=== PATIENT | male | born 1985 | race Caucasian/White ===

== ENCOUNTER 2016-06-23 04:10 | Inpatient (IN) | payer SELFPAY ==
[~2016-06-23] VITALS: Ht 180.3 cm; Wt 57.2 kg
[~2016-06-23 04:10] MED LIST: DILANTIN100 MG PO; FLEXERIL10 MG PO; KEPPRA500 MG PO; LOPRESSOR100 M1 PO; Lopressor PO; MOTRIN800 MG PO; PROPYLTHIOURACI50 M1 PO; ULTRAM50 MG PO; oxyCODONE PO
[2016-06-23 05:47] LABS: CHLORIDE 97 mEq/L (99-109); POTASSIUM 3.8 mEq/L (3.7-5.4); SODIUM 141 mEq/L (136-147)
[2016-06-23 05:49] LABS: GLUCOSE 124 mg/dL (70-99)
[2016-06-23 05:50] LABS: ANION GAP 8 MEQ/L (2-14)
[2016-06-23 05:52] LABS: SERUM ETHYL ALCOHOL < 10 mg/dL
[2016-06-23 05:53] LABS: GFR ESTIMATE (CALCULATED) > 59 mL/min/
[2016-06-23 05:54] LABS: HEMATOCRIT 45.7 % (38.0-50.0); MCH 28.5 PG (29.0-34.0); MCHC 30.9 G/DL (30.0-36.0); MCV 92.5 FL (86-99); MEAN PLAT.VOLUME 9.9 uM^3 (9.0-12.4); PLATELET COUNT 220 K/uL (156-360); RBC DIS.WIDTH-CV 13.4 % (11.8-14.6); RBC DIS.WIDTH-SD 45.6 % (39-53); RED BLOOD COUNT 4.94 M/uL (4.00-5.50); UREA NITROGEN (BUN) 12 mg/dL (9-23); WHITE BLOOD COUNT 25.9 K/uL (4.1-10.2)
[2016-06-23 05:56] LABS: SALICYLATE < 5.0 MG/DL (15-30)
[2016-06-23 06:25] LABS: BASE EXCESS 4.2 mEq/L (-3 to +3); BICARBONATE 35.6 mEq/L (22-26); METHEMOGLOBIN 1.4 % (0-1.5); PCO2 91 mm Hg (35-45); PO2 109 mm Hg (80-100)
[2016-06-23 06:26] LABS: COMMENTS - BLOOD GASES C+A+; DEVICE NC; O2 FLOW 3 L/MIN; SITE RR; TOTAL RESP RATE 14 resp/min
[2016-06-23 07:14] LABS: BASE EXCESS 8.3 mEq/L (-3 to +3); BICARBONATE 37.1 mEq/L (22-26); METHEMOGLOBIN 1.4 % (0-1.5); PO2 126 mm Hg (80-100)
[2016-06-23 07:15] LABS: COMMENTS - BLOOD GASES A+C+; DEVICE 980; FI02 30 %; MODE N/V SPONT; PCO2 72 mm Hg (35-45); PEEP 5 CM/H20; PRES. SUPPORT 10 CM/H2O; SITE RR; TOTAL RESP RATE 14 resp/min; pH 7.32 (7.35-7.45)
[2016-06-23 07:18] LABS: EOSINOPHIL (%) 0.1 % (0-5); HEMATOCRIT 42.6 % (38.0-50.0); IMMATURE GRANULOCYTE (%) 0.5 % (0.0-0.7); IMMATURE GRANULOCYTE COUNT 0.1 K/uL; INSTRUMENT ABS NEUTROPHIL CT 14.1 K/uL; LYMPHOCYTE COUNT 0.5 K/uL (1.0-2.8); MCH 28.1 PG (29.0-34.0); MCV 90.6 FL (86-99); MEAN PLAT.VOLUME 9.9 uM^3 (9.0-12.4); MONOCYTE (%) 11.5 % (3-12); MONOCYTE COUNT 1.9 K/uL (0-0.8); NEUTROPHIL (%) 85.1 % (45-76); NEUTROPHIL COUNT 14.1 K/uL (1.8-6.4); PLATELET COUNT 210 K/uL (156-360); RBC DIS.WIDTH-CV 13.5 % (11.8-14.6); RBC DIS.WIDTH-SD 45.1 % (39-53); WHITE BLOOD COUNT 16.6 K/uL (4.1-10.2)
[2016-06-23 07:23] LABS: AMYLASE 48 IU/L (1-118); CHLORIDE 99 mEq/L (99-109); POTASSIUM 4.3 mEq/L (3.7-5.4); SODIUM 140 mEq/L (136-147)
[2016-06-23 07:24] LABS: INTER. NORMALIZED RATIO 1.3; PROTHROMBIN TIME 12.9 (9.2-11.2); PTT 26.4 (25-32)
[2016-06-23 07:26] LABS: ANION GAP 7 MEQ/L (2-14)
[2016-06-23 07:27] LABS: GLUCOSE 69 mg/dL (70-99)
[2016-06-23 07:28] LABS: SERUM ETHYL ALCOHOL < 10 mg/dL
[2016-06-23 07:29] LABS: GFR ESTIMATE (CALCULATED) > 59 mL/min/
[2016-06-23 07:30] LABS: UREA NITROGEN (BUN) 12 mg/dL (9-23)
[2016-06-23 07:32] LABS: LIPASE 11 U/L (1.0-51.0)
[2016-06-23 07:37] LABS: TROP-I INTERPRETATION NEGATIVE; TROPONIN-I 0.03 ng/mL (0.0-0.30)
[2016-06-23 11:06] LABS: ADD MIUA? NO; BILIRUBIN NEGATIVE; BLOOD NEGATIVE; COLOR YELLOW ((YELLOW)); GLUCOSE (STRIP) NEGATIVE; KETONES NEGATIVE; LEUKOCYTES NEGATIVE; NITRITE NEGATIVE; PROTEIN (STRIP) 30; SPECIFIC GRAVITY 1.016 (1.000-1.030); UCUL ADDED? NO; UROBILINOGEN 0.2 MG/DL (0.2-1.0)
[2016-06-23 12:16] LABS: AMPHETAMINE NEGATIVE (500 ng/mL); BARBITURATES NEGATIVE (200 ng/mL); BENZODIAZEPINES NEGATIVE (150 ng/mL); COCAINE NEGATIVE (150 ng/mL); INTERNAL CONTROLS VALID? YES; METHADONE PRESUMPTIVE POSITIVE (200 ng/mL); METHAMPHETAMINE NEGATIVE (500 ng/mL); OPIATES (MORPHINE) NEGATIVE (100 ng/mL); OXYCODONE PRESUMPTIVE POSITIVE (100 ng/mL); PHENCYCLIDINE NEGATIVE (25 ng/mL); PROPOXYPHENE NEGATIVE (300 ng/mL); THC CANNABINOIDS NEGATIVE (50 ng/mL); TRICYCLIC ANTIDEPRESSANTS NEGATIVE (300 ng/mL)
[2016-06-23 13:34] LABS: TROP-I INTERPRETATION NEGATIVE; TROPONIN-I 0.03 ng/mL (0.0-0.30)
[2016-06-23 14:20] VITALS: BP 120/66
[2016-06-23 19:11] LABS: TROP-I INTERPRETATION NEGATIVE; TROPONIN-I 0.02 ng/mL (0.0-0.30)
[2016-06-23 20:28] VITALS: BP 101/55
[2016-06-23 23:48] VITALS: BP 107/65
[2016-06-24 03:42] VITALS: BP 100/54
[2016-06-24 07:19] LABS: HEMATOCRIT 39.4 % (38.0-50.0); MCH 27.9 PG (29.0-34.0); MCHC 30.2 G/DL (30.0-36.0); MCV 92.3 FL (86-99); MEAN PLAT.VOLUME 10.3 uM^3 (9.0-12.4); PLATELET COUNT 196 K/uL (156-360); RBC DIS.WIDTH-CV 13.8 % (11.8-14.6); RBC DIS.WIDTH-SD 46.5 % (39-53); RED BLOOD COUNT 4.27 M/uL (4.00-5.50)
[2016-06-24 07:32] VITALS: BP 115/59
[2016-06-24 11:34] VITALS: BP 116/66
[2016-06-24 16:08] VITALS: BP 107/71
[2016-06-24 19:57] VITALS: BP 114/58
[2016-06-25] VITALS (7 sets, daily range): BP systolic 108–134; BP diastolic 66–79
[2016-06-25 12:41] LABS: D-DIMER ELISA 0.23 mg/L FEU (< 0.57)
[2016-06-26 04:35] VITALS: BP 120/68
[2016-06-26 07:31] LABS: ANION GAP ND MEQ/L (2-14); CHLORIDE 93 MEQ/L (99-109); GFR ESTIMATE (CALCULATED) > 59 mL/min/; POTASSIUM 4.4 MEQ/L (3.7-5.4); SAMPLE HEMOLYSIS CHECK 0; SAMPLE ICTERIC CHECK 0; SAMPLE LIPEMIA CHECK 0; SODIUM 144 MEQ/L (136-147); UREA NITROGEN (BUN) 5 mg/dL (9-23)
[2016-06-26 07:32] LABS: CARBON DIOXIDE (BICARBONATE) > 40.0 MEQ/L (20-31); GLUCOSE 90 mg/dL (70-99)
[2016-06-26 07:55] LABS: HEMATOCRIT 45.9 % (38.0-50.0); MCH 27.6 PG (29.0-34.0); MCHC 29.6 G/DL (30.0-36.0); MCV 93.1 FL (86-99); MEAN PLAT.VOLUME 9.8 uM^3 (9.0-12.4); PLATELET COUNT 202 K/uL (156-360); RBC DIS.WIDTH-CV 13.5 % (11.8-14.6); RBC DIS.WIDTH-SD 45.8 % (39-53); RED BLOOD COUNT 4.93 M/uL (4.00-5.50)
[2016-06-26 08:02] LABS: WHITE BLOOD COUNT 9.5 K/uL (4.1-10.2)
[2016-06-26 08:49] LABS: BICARBONATE 51.5 mEq/L (22-26); CARBOXY HGB 2.7 % (0-5); COMMENTS - BLOOD GASES A+C+; METHEMOGLOBIN 1.6 % (0-1.5); PCO2 87 mm Hg (35-45); PO2 55 mm Hg (80-100); SITE RR; TOTAL RESP RATE 16 resp/min; pH 7.38 (7.35-7.45)
[2016-06-26 08:56] LABS: DEVICE NC; O2 FLOW 1 L/MIN
[2016-06-26 09:04] VITALS: BP 113/64
[2016-06-26 12:35] VITALS: BP 131/76
[2016-06-26 16:00] VITALS: BP 147/90
[2016-06-26 20:47] VITALS: BP 129/67
[2016-06-27 01:00] VITALS: BP 132/78
[2016-06-27 04:42] VITALS: BP 129/60
[2016-06-27 06:10] LABS: EOSINOPHIL (%) 3.8 % (0-5); EOSINOPHIL COUNT 0.3 K/uL (0-0.3); HEMATOCRIT 42.2 % (38.0-50.0); IMMATURE GRANULOCYTE (%) 0.3 % (0.0-0.7); INSTRUMENT ABS NEUTROPHIL CT 5.3 K/uL; LYMPHOCYTE COUNT 1.1 K/uL (1.0-2.8); MCH 27.9 PG (29.0-34.0); MCHC 31.3 G/DL (30.0-36.0); MCV 89.2 FL (86-99); MEAN PLAT.VOLUME 9.8 uM^3 (9.0-12.4); MONOCYTE (%) 11.9 % (3-12); MONOCYTE COUNT 0.9 K/uL (0-0.8); NEUTROPHIL (%) 69.6 % (45-76); NEUTROPHIL COUNT 5.3 K/uL (1.8-6.4); PLATELET COUNT 207 K/uL (156-360); RBC DIS.WIDTH-CV 13.2 % (11.8-14.6); RBC DIS.WIDTH-SD 43.4 % (39-53); RED BLOOD COUNT 4.73 M/uL (4.00-5.50); WHITE BLOOD COUNT 7.6 K/uL (4.1-10.2)
[2016-06-27 07:49] VITALS: BP 120/57
[2016-06-27 09:04] LABS: ANION GAP ND MEQ/L (2-14); CHLORIDE 95 MEQ/L (99-109); GFR ESTIMATE (CALCULATED) > 59 mL/min/; GLUCOSE 96 mg/dL (70-99); SAMPLE HEMOLYSIS CHECK 0; SAMPLE ICTERIC CHECK 0; SAMPLE LIPEMIA CHECK 0; SODIUM 142 MEQ/L (136-147); UREA NITROGEN (BUN) 6 mg/dL (9-23)
[2016-06-27 09:06] LABS: CARBON DIOXIDE (BICARBONATE) > 40.0 MEQ/L (20-31); POTASSIUM 5.3 MEQ/L (3.7-5.4)
[2016-06-27 11:42] VITALS: BP 130/68
[2016-06-27 15:49] VITALS: BP 122/75
[2016-06-27 20:05] VITALS: BP 125/64
[2016-06-28] VITALS: BP 129/79
[2016-06-28 04:00] VITALS: BP 116/74
[2016-06-28 07:01] LABS: EOSINOPHIL (%) 2.9 % (0-5); EOSINOPHIL COUNT 0.3 K/uL (0-0.3); HEMATOCRIT 45.6 % (38.0-50.0); IMMATURE GRANULOCYTE (%) 0.3 % (0.0-0.7); INSTRUMENT ABS NEUTROPHIL CT 6.3 K/uL; LYMPHOCYTE COUNT 1.3 K/uL (1.0-2.8); MCH 27.4 PG (29.0-34.0); MCHC 31.4 G/DL (30.0-36.0); MCV 87.4 FL (86-99); MONOCYTE (%) 12.3 % (3-12); MONOCYTE COUNT 1.1 K/uL (0-0.8); NEUTROPHIL (%) 70.1 % (45-76); NEUTROPHIL COUNT 6.3 K/uL (1.8-6.4); PLATELET COUNT 236 K/uL (156-360); RBC DIS.WIDTH-CV 13.8 % (11.8-14.6); RBC DIS.WIDTH-SD 44.2 % (39-53); RED BLOOD COUNT 5.22 M/uL (4.00-5.50)
[2016-06-28 07:22] LABS: BASE EXCESS 7.3 mEq/L (-3 to +3); CARBOXY HGB 2.6 % (0-5); METHEMOGLOBIN 1.9 % (0-1.5); PO2 66 mm Hg (80-100)
[2016-06-28 07:23] LABS: BICARBONATE 34.1 mEq/L (22-26); COMMENTS - BLOOD GASES NAC+; DEVICE RA; PCO2 55 mm Hg (35-45); SITE RR; TOTAL RESP RATE 16 resp/min
[2016-06-28 07:31] LABS: ANION GAP 6 MEQ/L (2-14); CHLORIDE 97 MEQ/L (99-109); GFR ESTIMATE (CALCULATED) > 59 mL/min/; GLUCOSE 91 mg/dL (70-99); SAMPLE HEMOLYSIS CHECK 0; SAMPLE ICTERIC CHECK 0; SAMPLE LIPEMIA CHECK 0; SODIUM 138 MEQ/L (136-147); UREA NITROGEN (BUN) 11 mg/dL (9-23)
[2016-06-28 08:29] VITALS: BP 145/76
[2016-06-28 13:16] VITALS: BP 120/68
[2016-06-28] MEDS ORDERED: VENTOLIN HFA18 GM IH (14:35)
[2016-06-28] MEDS ORDERED: CEFTIN500 MG PO (16:22)
[2016-06-28] MEDS ORDERED: TYLENOL REGULA325 MG PO (16:23)
== END 2016-06-28 17:00 | disposition home health service (06) | DRG 917 ==
LOC: EME → EDBD 04:10 → EME 04:10 → EDOF 08:07 → 4SOUTH 13:13 → EDOF 13:13 → 4EAST 14:10 → 4SOUTH 06-25 18:30
PROVIDERS: Emergency Medicine; Internal Medicine; Internal Medicine Pulmonary Disease; Physician Assistant; Student in an Organized Health Care Education/Training Program
PROC: 5A09358 Assistance with Respiratory Ventilation, Less than 24 Consecutive Hours, Intermittent Positive Airway Pressure (ICD-10-PCS; principal; 2016-06-23)
DX: T40.2X1A Poisoning by other opioids, accidental (unintentional), initial encounter (principal); J96.21 Acute and chronic respiratory failure with hypoxia; J96.22 Acute and chronic respiratory failure with hypercapnia; F11.20 Opioid dependence, uncomplicated; J15.9 Unspecified bacterial pneumonia; J69.0 Pneumonitis due to inhalation of food and vomit; R41.82 Altered mental status, unspecified; R55 Syncope and collapse; E87.2 Acidosis; Y92.008 Other place in unspecified non-institutional (private) residence as the place of occurrence of the external cause; G40.909 Epilepsy, unspecified, not intractable, without status epilepticus; E03.9 Hypothyroidism, unspecified; R68.0 Hypothermia, not associated with low environmental temperature; R94.31 Abnormal electrocardiogram [ECG] [EKG]
CPT/HCPCS: 36600; 70450; 71010; 71020; 80048; 80048 91; 81003; 82150; 82803; 83605; 83690; 84443; 84484; 85025; 85027; 85379; 85610; 85730; 86850; 86900; 86901; 87040; 87070; 87205; 93005; 94002; 94640; 94640 76; 94660; 94760; 94799; 99202; 99281; 99285; G0480; J0696; J1650; J1953; J2310; J2543; J7030; J7040; J7050; S0028